=== PATIENT | male | born 1945 | race Caucasian/White ===

== ENCOUNTER 2022-11-10 11:11 | Emergency (ER) | payer MEDICARE, OTHER ==
[~2022-11-10] VITALS: Ht 165.1 cm; Wt 59.0 kg
[2022-11-10] MEDS ORDERED: HYDROCODONE/ACETAMINOPHEN 5/325 MG TAB PO ONE (12:30)
[2022-11-10] MEDS ORDERED: CYCLOBENZAPRINE HCL 10 MG TABLET PO ONE (12:30)
[2022-11-10 13:53] LABS: HEMATOCRIT 46.3 % (42-54); MEAN CORPUSCULAR HEMOGLOBIN 33.3 pg (27.0-33.0); MEAN CORPUSCULAR VOLUME 100.9 fL (79-99); RED BLOOD CELL COUNT(AUTO) 4.59 MIL/uL (4.50-6.20); RED CELL DISTRIBUTION WIDTH 12.8 % (11.0-15.5); WHITE BLOOD COUNT (AUTO) 16.5 K/uL (4.8-10.8)
[2022-11-10 13:54] LABS: APPEARANCE,URINE CLEAR (CLEAR); BILIRUBIN,URINE NEGATIVE (NEGATIVE); COLOR,URINE YELLOW (YELLOW); GLUCOSE, URINE (UA) NEGATIVE (NEGATIVE); KETONES,URINE NEGATIVE (NEGATIVE); LEUKOCYTE ESTERASE ,URINE NEGATIVE Leu/uL (NEGATIVE); NITRATE,URINE NEGATIVE (NEGATIVE); OCCULT BLOOD,URINE NEGATIVE (NEGATIVE); PROTEIN,URINE NEGATIVE (NEGATIVE); UROBILINOGEN,URINE 0.2 mg/dL (0.2-1.0)
[2022-11-10 13:56] LABS: ADD UA MICROSCOPIC NO
[2022-11-10 14:03] LABS: CREATININE 1.2 mg/dL (0.5-1.5); POTASSIUM 4.6 mmol/L (3.5-5.1)
[2022-11-10 14:08] LABS: ALBUMIN 3.8 g/dL (3.5-5.0); BILIRUBIN,TOTAL 0.6 mg/dL (0.2-1.0); TOTAL PROTEIN, SERUM 7.5 g/dL (6.0-8.3)
[2022-11-10 14:25] VITALS: BP 138/75; PULSE 71; RESP 18; O2SAT 94
[2022-11-10] MEDS ORDERED: ACET-2079 PO (14:50)
[2022-11-10] MEDS ORDERED: CYCL10TA16 PO (14:50)
== END 2022-11-10 15:51 | disposition home or self-care (01) ==
LOC: EDH 11:11
DX: M48.54XA Collapsed vertebra, not elsewhere classified, thoracic region, initial encounter for fracture (principal); M54.50 Low back pain, unspecified; J45.909 Unspecified asthma, uncomplicated; J44.9 Chronic obstructive pulmonary disease, unspecified; I10 Essential (primary) hypertension; E78.00 Pure hypercholesterolemia, unspecified; Z87.891 Personal history of nicotine dependence; Z79.899 Other long term (current) drug therapy
CPT/HCPCS: 36415; 71045; 72128; 72131; 80053; 81003; 85027

== ENCOUNTER 2023-02-14 12:20 | Emergency (ER) | payer MEDICARE, OTHER ==
[~2023-02-14] VITALS: Ht 162.6 cm; Wt 61.2 kg
[~2023-02-14 12:20] MED LIST: ACET-2079 PO; CYCL10TA16 PO
[2023-02-14] MEDS ORDERED: MORPHINE 4 MG SYG IM ONE (13:00)
[2023-02-14 13:14] LABS: BASOPHILS # (AUTO) 0.04 K/uL (0.00-0.20); BASOPHILS % (AUTO) 0.4 % (0.0-5.0); EOSINOPHILS # (AUTO) 0.23 K/uL (0.00-0.70); EOSINOPHILS % (AUTO) 2.5 % (0.0-8.0); HEMATOCRIT 41.2 % (42-54); IMMATURE GRANULOCYTE ABSOLUTE 0.05 K/uL (0-1); LYMPHOCYTES % (AUTO) 10.8 % (21.0-51.0); MEAN CORPUSCULAR HEMOGLOBIN 32.2 pg (27.0-33.0); MEAN CORPUSCULAR HGB CONC 33.3 g/dL (32.0-36.0); MEAN CORPUSCULAR VOLUME 96.7 fL (79-99); MONOCYTES % (AUTO) 10.6 % (3.0-13.0); NEUTROPHILS % (AUTO) 75.2 % (40.0-77.0); PLATELET COUNT (AUTO) 320 K/uL (130-400); RED BLOOD CELL COUNT(AUTO) 4.26 MIL/uL (4.50-6.20); WHITE BLOOD COUNT (AUTO) 9.3 K/uL (4.8-10.8)
[2023-02-14 13:26] LABS: CREATININE 1.6 mg/dL (0.5-1.5); POTASSIUM 4.1 mmol/L (3.5-5.1)
[2023-02-14 13:31] LABS: ALBUMIN 3.1 g/dL (3.5-5.0); BILIRUBIN,TOTAL 0.6 mg/dL (0.2-1.0); TOTAL PROTEIN, SERUM 7.4 g/dL (6.0-8.3)
[2023-02-14] MEDS ORDERED: TRAM50TA4 PO (15:18)
[2023-02-14 15:49] VITALS: BP 115/58; PULSE 75; RESP 16; O2SAT 95
== END 2023-02-14 15:55 | disposition home or self-care (01) ==
LOC: EDH 12:20
DX: S42.002A Fracture of unspecified part of left clavicle, initial encounter for closed fracture (principal); M54.50 Low back pain, unspecified; I10 Essential (primary) hypertension; E78.00 Pure hypercholesterolemia, unspecified; J44.9 Chronic obstructive pulmonary disease, unspecified; Z79.899 Other long term (current) drug therapy; Z98.890 Other specified postprocedural states; W10.8XXA Fall (on) (from) other stairs and steps, initial encounter; Y93.89 Activity, other specified; Y92.89 Other specified places as the place of occurrence of the external cause; Y99.8 Other external cause status
CPT/HCPCS: 99285; 72131; 80053; 85025; 36415; 73030; 96372; J2270

== ENCOUNTER 2023-12-07 11:19 | Emergency (ER) | payer OTHER ==
[~2023-12-07] VITALS: Ht 165.1 cm; Wt 53.1 kg
[~2023-12-07 11:19] MED LIST changes: +TRAM50TA4 PO
[2023-12-07 12:06] LABS: BASOPHILS # (AUTO) 0.03 K/uL (0.00-0.20); BASOPHILS % (AUTO) 0.3 % (0.0-5.0); EOSINOPHILS # (AUTO) 0.07 K/uL (0.00-0.70); EOSINOPHILS % (AUTO) 0.7 % (0.0-8.0); HEMATOCRIT 42.6 % (42-54); IMMATURE GRANULOCYTE ABSOLUTE 0.04 K/uL (0-1); LYMPHOCYTES # (AUTO) 0.7 K/uL (1.0-4.8); LYMPHOCYTES % (AUTO) 7.1 % (21.0-51.0); MEAN CORPUSCULAR HEMOGLOBIN 31.1 pg (27.0-33.0); MEAN CORPUSCULAR HGB CONC 33.1 g/dL (32.0-36.0); MEAN CORPUSCULAR VOLUME 93.8 fL (79-99); MONOCYTES # (AUTO) 1.2 K/uL (0.1-1.0); MONOCYTES % (AUTO) 12.2 % (3.0-13.0); NEUTROPHILS # (AUTO) 7.5 K/uL (1.8-7.7); NEUTROPHILS % (AUTO) 79.3 % (40.0-77.0); PLATELET COUNT (AUTO) 377 K/uL (130-400); RED BLOOD CELL COUNT(AUTO) 4.54 MIL/uL (4.50-6.20); RED CELL DISTRIBUTION WIDTH 13.7 % (11.0-15.5); WHITE BLOOD COUNT (AUTO) 9.5 K/uL (4.8-10.8)
[2023-12-07] MEDS ORDERED: DOXY100T21 PO (13:08)
[2023-12-07] MEDS ORDERED: TRAM50TA4 PO (13:08)
[2023-12-07] MEDS ORDERED: ACET-66 PO (13:08)
[2023-12-07] MEDS: acetaMINOPHEN WITH coDEINE 1 TAB TAB PO ONE (13:49)
[2023-12-07] MEDS: ASPIRIN 325MG EC TAB PO ONE (13:49)
[2023-12-07] MEDS: DOXYCYCLINE HYCLATE 100 MG TABLET PO SCH (14:20)
[2023-12-07 15:06] VITALS: BP 144/81; PULSE 68; RESP 20; O2SAT 96
== END 2023-12-07 15:29 | disposition home or self-care (01) ==
LOC: EDH 11:19
DX: S90.822A Blister (nonthermal), left foot, initial encounter (principal); S90.821A Blister (nonthermal), right foot, initial encounter; L03.116 Cellulitis of left lower limb; L03.115 Cellulitis of right lower limb; J44.9 Chronic obstructive pulmonary disease, unspecified; E78.00 Pure hypercholesterolemia, unspecified; I10 Essential (primary) hypertension; Z98.890 Other specified postprocedural states; Z79.899 Other long term (current) drug therapy; X58.XXXA Exposure to other specified factors, initial encounter; Y93.89 Activity, other specified; Y92.89 Other specified places as the place of occurrence of the external cause; Y99.8 Other external cause status
CPT/HCPCS: 36415; 73630; 85025

== ENCOUNTER 2023-12-17 09:24 | Inpatient (IN) | payer OTHER, MEDICARE ==
[~2023-12-17] VITALS: Ht 165.1 cm; Wt 52.0 kg
[2023-12-17] VITALS (11 sets, daily range): BP systolic 83–144; BP diastolic 46–109; PULSE 99–118; RESP 18–20; TEMP 98–98.5; O2SAT 91–100
[~2023-12-17 09:24] MED LIST changes: +ACET-66 PO; +DOXY100T21 PO
[2023-12-17 10:05] LABS: INR 1.14 (0.85-1.15); PROTHROMBIN TIME 12.2 SEC (9.6-11.6)
[2023-12-17 10:07] LABS: PARTIAL THROMBOPLASTIN TIME 26.3 SEC (26.3-35.5)
[2023-12-17 10:10] LABS: CREATININE 1.4 mg/dL (0.5-1.3); POTASSIUM 3.9 mmol/L (3.5-5.1)
[2023-12-17 10:15] LABS: ALBUMIN 3.1 g/dL (3.5-5.0); BILIRUBIN,TOTAL 1.3 mg/dL (0.2-1.0)
[2023-12-17 10:36] LABS: BASOPHILS # (AUTO) 0.05 K/uL (0.00-0.20); BASOPHILS % (AUTO) 0.5 % (0.0-5.0); EOSINOPHILS # (AUTO) 0.05 K/uL (0.00-0.70); EOSINOPHILS % (AUTO) 0.5 % (0.0-8.0); HEMATOCRIT 39.2 % (42-54); IMMATURE GRANULOCYTE ABSOLUTE 0.15 K/uL (0-1); MEAN CORPUSCULAR HEMOGLOBIN 29.8 pg (27.0-33.0); MEAN CORPUSCULAR HGB CONC 33.2 g/dL (32.0-36.0); MEAN CORPUSCULAR VOLUME 89.9 fL (79-99); MONOCYTES # (AUTO) 1.9 K/uL (0.1-1.0); MONOCYTES % (AUTO) 19.1 % (3.0-13.0); NEUTROPHILS # (AUTO) 6.8 K/uL (1.8-7.7); NEUTROPHILS % (AUTO) 68.4 % (40.0-77.0); PLATELET COUNT (AUTO) 93 K/uL (130-400); RED BLOOD CELL COUNT(AUTO) 4.36 MIL/uL (4.50-6.20); RED CELL DISTRIBUTION WIDTH 14.7 % (11.0-15.5)
[2023-12-17] MEDS: CEFTRIAXONE 2GM VIAL IVPB ONE (11:09)
[2023-12-17] MEDS: morPHINE 2 MG SYG IVP ONE (11:46)
[2023-12-17 11:58] LABS: BAND NEUTROPHILS % (MANUAL) 3 % (0-2); BLASTS, MANUAL % 3 (0-0); LYMPHOCYTES % (MANUAL) 3 % (22-44); MAN.DIFF COMMENT-IMPRESSION MANUAL DIFFERENTIAL; MONOCYTES % (MANUAL) 11 % (2-9); REACTIVE LYMPHOCYTES 2 % (0-0); SEGMENTED NEUTROPHILS % 78 % (40-70); TOTAL CELLS COUNTED 100; WBC MORPHOLOGY IMMATURE LYMPHS 1+
[2023-12-17 11:59] LABS: PLATELET MORPHOLOGY COMMENT DECREASED
[2023-12-17] MEDS ORDERED: VANCOMYCIN PROTOCOL PER PHARMACY IV SCH (12:00)
[2023-12-17] MEDS ORDERED: ALBUTEROL 0.083% 2.5 MG/3 ML INH IH PRN (12:00)
[2023-12-17] MEDS: 0.9%NACL 1000ML 1,000 ML IV SCH ×2 (12:17→16:30)
[2023-12-17] MEDS ORDERED: PoTASSium chl 10% ELIXIR 20MEQ 20 MEQ/15 ML UDCUP PO PRN (12:30)
[2023-12-17] MEDS ORDERED: acetaMINOPHEN 500 MG TABLET PO PRN (12:30)
[2023-12-17] MEDS: VANCOMYCIN 1.25 GM/250 ML BAG 250 ML IV ONE (12:40)
[2023-12-17] MEDS: cloPIDOgrel 75MG TAB PO ONE (13:17)
[2023-12-17] MEDS: ASPIRIN 81MG CHEW TAB PO ONE (13:17)
[2023-12-17 13:20] LABS: CREATINE KINASE, TOTAL < 7 U/L (21-232)
[2023-12-17] MEDS ORDERED: LIDOCAINE HCL 400MG/20ML VIAL ONE (13:31)
[2023-12-17] MEDS ORDERED: IODIXANOL 320 MG/ML 100 ML VIAL ONE (13:31)
[2023-12-17] MEDS ORDERED: HEParin-NS 1,000 UNIT/500 ML 1,000 ML IV ONE (13:31)
[2023-12-17] MEDS ORDERED: NITROGLYCERIN 50MG VIAL ONE (13:32)
[2023-12-17] MEDS ORDERED: HEParin 10,000 UNIT/10ML (1,000 UNIT/ML) VIAL ONE (13:36)
[2023-12-17] MEDS ORDERED: FENTanyl CITRate PF 50 MCG/1 ML 2ML VIAL ONE (14:01)
[2023-12-17] MEDS ORDERED: MIDAZOLAM HCL 1 MG/ML 2ML VIAL ONE (14:01)
[2023-12-17] MEDS ORDERED: DiphenhydrAMINE HCL 50 MG/ML VIAL ONE (15:16)
[2023-12-17] MEDS ORDERED: VERAPAMIL HCL 2.5 MG/ML VIAL ONE (15:32)
[2023-12-17] MEDS ORDERED: HEParin 5,000 UNIT VIAL IV PRN (18:00)
[2023-12-17] MEDS ORDERED: ALBU0.63 IH (19:23)
[2023-12-17] MEDS ORDERED: CLOP75TA32 PO (19:34)
[2023-12-17] MEDS ORDERED: SODI15DR8 OP (19:34)
[2023-12-17] MEDS ORDERED: ATOR40TA69 PO (19:34)
[2023-12-17] MEDS ORDERED: CALC200V3 IJ (19:34)
[2023-12-17] MEDS ORDERED: ASPI-1197 PO (19:34)
[2023-12-17] MEDS ORDERED: TRIA1TAB3 PO (19:34)
[2023-12-17] MEDS ORDERED: AMLO-257 PO (19:34)
[2023-12-17] MEDS ORDERED: TIOT4MIS3 IH (19:34)
[2023-12-17] MEDS ORDERED: METO25TA6 PO (19:34)
[2023-12-17] MEDS: metoPROLOL tartRATE 25 MG TAB PO SCH (21:03)
[2023-12-17] MEDS: atorVAStatin 40 MG TABLET PO SCH (21:03)
[2023-12-17] MEDS: HEParin 25,000 UNITS/250ML D5W 250 ML IV SCH (21:10)
[2023-12-17 22:51] LABS: BASOPHILS # (AUTO) 0.04 K/uL (0.00-0.20); BASOPHILS % (AUTO) 0.4 % (0.0-5.0); HEMATOCRIT 32.1 % (42-54); IMMATURE GRANULOCYTE ABSOLUTE 0.15 K/uL (0-1); LYMPHOCYTES # (AUTO) 0.9 K/uL (1.0-4.8); LYMPHOCYTES % (AUTO) 9.1 % (21.0-51.0); MEAN CORPUSCULAR HEMOGLOBIN 30.3 pg (27.0-33.0); MEAN CORPUSCULAR HGB CONC 33.3 g/dL (32.0-36.0); MEAN CORPUSCULAR VOLUME 90.9 fL (79-99); MONOCYTES # (AUTO) 1.8 K/uL (0.1-1.0); MONOCYTES % (AUTO) 18.4 % (3.0-13.0); NEUTROPHILS # (AUTO) 6.8 K/uL (1.8-7.7); NEUTROPHILS % (AUTO) 70.5 % (40.0-77.0); PLATELET COUNT (AUTO) 77 K/uL (130-400); RED BLOOD CELL COUNT(AUTO) 3.53 MIL/uL (4.50-6.20); WHITE BLOOD COUNT (AUTO) 9.6 K/uL (4.8-10.8)
[2023-12-17 23:01] LABS: APPEARANCE,URINE CLEAR (CLEAR); BILIRUBIN,URINE NEGATIVE (NEGATIVE); COLOR,URINE LIGHT-YELLOW (YELLOW); CREATININE,URINE RANDOM 64.31 mg/dL (30-135); GLUCOSE, URINE (UA) NEGATIVE (NEGATIVE); KETONES,URINE 10 mg/dL (NEGATIVE); LEUKOCYTE ESTERASE ,URINE NEGATIVE Leu/uL (NEGATIVE); NITRATE,URINE NEGATIVE (NEGATIVE); OCCULT BLOOD,URINE NEGATIVE (NEGATIVE); PH,URINE 5.5 (5.0-8.0); PROTEIN,URINE 20 mg/dL (NEGATIVE); SODIUM,URINE RANDOM 69 mmol/l (40-220); UROBILINOGEN,URINE 0.2 mg/dL (0.2-1.0)
[2023-12-17 23:05] LABS: ADD UA MICROSCOPIC YES
[2023-12-17 23:23] LABS: WBC,URINE 0-1 /HPF (0-1)
[2023-12-17 23:25] LABS: BACTERIA,URINE None Seen /HPF (None Seen); SQUAMOUS EPITHELIAL CELL,UR Rare /HPF (0-2)
[2023-12-17 23:26] LABS: RBC,URINE None Seen /HPF (0-1)
[2023-12-18] VITALS (14 sets, daily range): BP systolic 85–129; BP diastolic 56–73; PULSE 76–116; RESP 13–32; TEMP 97.8–98.8; O2SAT 87–95
[2023-12-18 03:49] LABS: BASOPHILS # (AUTO) 0.04 K/uL (0.00-0.20); BASOPHILS % (AUTO) 0.4 % (0.0-5.0); EOSINOPHILS # (AUTO) 0.21 K/uL (0.00-0.70); HEMATOCRIT 32.2 % (42-54); IMMATURE GRANULOCYTE ABSOLUTE 0.22 K/uL (0-1); LYMPHOCYTES # (AUTO) 1.1 K/uL (1.0-4.8); LYMPHOCYTES % (AUTO) 9.9 % (21.0-51.0); MEAN CORPUSCULAR HEMOGLOBIN 29.7 pg (27.0-33.0); MEAN CORPUSCULAR HGB CONC 32.3 g/dL (32.0-36.0); MONOCYTES # (AUTO) 1.9 K/uL (0.1-1.0); MONOCYTES % (AUTO) 17.7 % (3.0-13.0); NEUTROPHILS # (AUTO) 7.2 K/uL (1.8-7.7); NEUTROPHILS % (AUTO) 67.9 % (40.0-77.0); PLATELET COUNT (AUTO) 84 K/uL (130-400); RED CELL DISTRIBUTION WIDTH 15.3 % (11.0-15.5); WHITE BLOOD COUNT (AUTO) 10.6 K/uL (4.8-10.8)
[2023-12-18 03:59] LABS: CREATININE 0.9 mg/dL (0.5-1.3); POTASSIUM 3.7 mmol/L (3.5-5.1)
[2023-12-18 08:03] LABS: SARS-CoV-2, RNA, NAAT NEGATIVE SARS CoV-2 (NEGATIVE)
[2023-12-18] MEDS ORDERED: cloPIDOgrel 75MG TAB PO SCH (09:00)
[2023-12-18] MEDS: CEFTRIAXONE 2GM VIAL IVPB SCH (09:14)
[2023-12-18] MEDS: ASPIRIN 81MG CHEW TAB PO SCH (09:14)
[2023-12-18] MEDS: IpraTROPium/alBUTERol SULFATE 3 ML SOLUTION IH SCH (11:00)
[2023-12-18] MEDS ORDERED: ALBUTEROL SULFATE IH PRN (11:00)
[2023-12-18] MEDS ORDERED: IpraTROPium/alBUTERol SULFATE 3 ML SOLUTION IH SCH (12:00)
[2023-12-18] MEDS: VANCOMYCIN 750MG VIAL IVPB SCH (14:15)
[2023-12-18] MEDS: Solu-medROL 125MG VIAL IVP ONE (14:24)
[2023-12-18] MEDS: SODIUM CHLORIDE 5% 15 ML OPHTH SOLN OP SCH (20:41)
[2023-12-19] VITALS (12 sets, daily range): BP systolic 102–119; BP diastolic 50–60; PULSE 64–98; RESP 16–20; TEMP 97.6–99.3; O2SAT 92–100
[2023-12-19] MEDS: metoPROLOL tartRATE 25 MG TAB PO SCH (00:28)
[2023-12-19 04:10] LABS: HEMATOCRIT 29.8 % (42-54); MEAN CORPUSCULAR HEMOGLOBIN 30.1 pg (27.0-33.0); MEAN CORPUSCULAR HGB CONC 33.2 g/dL (32.0-36.0); MEAN CORPUSCULAR VOLUME 90.6 fL (79-99); RED BLOOD CELL COUNT(AUTO) 3.29 MIL/uL (4.50-6.20); RED CELL DISTRIBUTION WIDTH 15.4 % (11.0-15.5); WHITE BLOOD COUNT (AUTO) 9.3 K/uL (4.8-10.8)
[2023-12-19 04:38] LABS: ALBUMIN 2.1 g/dL (3.5-5.0); BILIRUBIN,TOTAL 1.1 mg/dL (0.2-1.0); CREATININE 0.7 mg/dL (0.5-1.3); MAGNESIUM 1.3 mg/dL (1.80-2.40); POTASSIUM 3.4 mmol/L (3.5-5.1); TOTAL PROTEIN, SERUM 5.2 g/dL (6.0-8.3)
[2023-12-19] MEDS: PoTASSium chloRIDE 20MEQ ER 20 MEQ ERTAB PO PRN (05:49)
[2023-12-19] MEDS: MAGNESIUM 2GM PREMIX 50ML 50 ML IV PRN (05:49)
[2023-12-19] MEDS ORDERED: VANCOMYCIN 750MG VIAL IVPB SCH (07:00)
[2023-12-19] MEDS ORDERED: cloPIDOgrel 75MG TAB PO SCH (09:00)
[2023-12-19] MEDS: amLODIPine 5 MG TAB PO SCH (09:05)
[2023-12-19] MEDS: ASPIRIN 81 MG EC TAB PO SCH (09:05)
[2023-12-19] MEDS: TIOTROPIUM BR IH SCH (09:42)
[2023-12-19] MEDS: OLODATEROL HCL IH SCH (09:42)
[2023-12-19] MEDS: PoTASSium chloRIDE 20MEQ ER 20 MEQ ERTAB PO ONE (09:42)
[2023-12-19 16:40] LABS: MAGNESIUM 1.9 mg/dL (1.80-2.40); POTASSIUM 3.9 mmol/L (3.5-5.1)
[2023-12-19] MEDS: MAGNESIUM 2GM PREMIX 50ML 50 ML IV SCH (16:43)
[2023-12-20] VITALS (16 sets, daily range): BP systolic 108–132; BP diastolic 39–72; PULSE 65–114; RESP 18–32; TEMP 97.5–98.3; O2SAT 80–99
[2023-12-20 03:55] LABS: HEMATOCRIT 28.7 % (42-54); MEAN CORPUSCULAR HEMOGLOBIN 29.8 pg (27.0-33.0); MEAN CORPUSCULAR HGB CONC 33.4 g/dL (32.0-36.0); MEAN CORPUSCULAR VOLUME 89.1 fL (79-99); RED BLOOD CELL COUNT(AUTO) 3.22 MIL/uL (4.50-6.20); RED CELL DISTRIBUTION WIDTH 15.3 % (11.0-15.5); WHITE BLOOD COUNT (AUTO) 10.7 K/uL (4.8-10.8)
[2023-12-20 04:15] LABS: ALBUMIN 2.2 g/dL (3.5-5.0); BILIRUBIN,TOTAL 1.1 mg/dL (0.2-1.0); CREATININE 0.7 mg/dL (0.5-1.3); MAGNESIUM 2.2 mg/dL (1.80-2.40); POTASSIUM 3.7 mmol/L (3.5-5.1); TOTAL PROTEIN, SERUM 5.3 g/dL (6.0-8.3)
[2023-12-20] MEDS: VANCOMYCIN 750MG VIAL IVPB SCH (06:12)
[2023-12-20] MEDS ORDERED: IOHEXOL-350 50ML VIAL IV ONE (11:30)
[2023-12-20] MEDS ORDERED: IOHEXOL 350 MG/ML 100ML INFUS..BTL IV ONE (11:30)
[2023-12-20] MEDS: predniSONE 20 MG TABLET PO ONE (12:16)
[2023-12-20 14:09] LABS: ABG HCO3 24.5 mmol/L (21.0-28.0); ABG OXYGEN SATURATION 85.3 % (94.0-98.0); ABG PCO2 33 mmHg (35-48); ABG PH 7.496 (7.350-7.450); DEVICE COMMENT RR,EDDIE; PO2, ARTERIAL BG 45.1 mmHg (83.0-108.0); VENT MODE, BG RA (ROOM AIR)
[2023-12-20 23:27] LABS: ABG BASE EXCESS 0.8 mmol/L (-2.0-3.0); ABG HCO3 24.6 mmol/L (21.0-28.0); ABG PCO2 37 mmHg (35-48); ABG PH 7.441 (7.350-7.450); DEVICE COMMENT RR RN; PO2, ARTERIAL BG 87.1 mmHg (83.0-108.0); VENT MODE, BG 2LNC (ROOM AIR)
[2023-12-20] MEDS: DiphenhydrAMINE HCL 50 MG/ML VIAL IV ONE (23:44)
[2023-12-21] VITALS (17 sets, daily range): BP systolic 52–160; BP diastolic 60–77; PULSE 65–154; RESP 18–32; TEMP 97.8–102.5; O2SAT 92–95
[2023-12-21 07:18] LABS: MEAN CORPUSCULAR HEMOGLOBIN 29.6 pg (27.0-33.0); MEAN CORPUSCULAR HGB CONC 33.1 g/dL (32.0-36.0); MEAN CORPUSCULAR VOLUME 89.5 fL (79-99); NUCLEATED RED BLOOD CELLS 0.2 % (0.0-0.19); PLATELET COUNT (AUTO) 40 K/uL (130-400); RED BLOOD CELL COUNT(AUTO) 3.24 MIL/uL (4.50-6.20); RED CELL DISTRIBUTION WIDTH 15.9 % (11.0-15.5); WHITE BLOOD COUNT (AUTO) 8.3 K/uL (4.8-10.8)
[2023-12-21 08:35] LABS: BAND NEUTROPHILS % (MANUAL) 3 % (0-2); LYMPHOCYTES % (MANUAL) 4 % (22-44); MAN.DIFF COMMENT-IMPRESSION MANUAL DIFFERENTIAL; MONOCYTES % (MANUAL) 10 % (2-9); PLATELET MORPHOLOGY COMMENT MARKED DECREASE; SEGMENTED NEUTROPHILS % 83 % (40-70); TOTAL CELLS COUNTED 100
[2023-12-21] MEDS ORDERED: IOHEXOL 350 MG/ML 100ML INFUS..BTL IV ONE (09:31)
[2023-12-21] MEDS: predniSONE 20 MG TABLET PO ONE (10:37)
[2023-12-21] MEDS: HALOPERIDOL INJ 5 MG/ML VIAL IV ONE (12:22)
[2023-12-21] MEDS: ZOSYN 3.375GM +NS 50ML IV SCH (18:14)
[2023-12-21 18:17] LABS: COVID19 (SARS ANTIGEN RAPID) PRESUMPTIVE NEGATIVE (NEGATIVE); INFLUENZA TYPE A Negative For Type A (NEGATIVE); INFLUENZA TYPE B Negative For Type B (NEGATIVE)
[2023-12-21] MEDS: BUDESONIDE 0.25 MG/2 ML INH IH SCH (19:00)
[2023-12-21] MEDS: acetaMINOPHEN 650 MG SUPPOSITORY RC PRN (21:33)
[2023-12-22] VITALS (111 sets, daily range): BP systolic 117–180; BP diastolic 51–107; PULSE 69–193; RESP 8–54; TEMP 99–100.9; O2SAT 90–100
[2023-12-22 03:52] LABS: BASOPHILS # (AUTO) 0.03 K/uL (0.00-0.20); BASOPHILS % (AUTO) 0.3 % (0.0-5.0); EOSINOPHILS # (AUTO) 0.02 K/uL (0.00-0.70); EOSINOPHILS % (AUTO) 0.2 % (0.0-8.0); HEMATOCRIT 26.4 % (42-54); IMMATURE GRANULOCYTE ABSOLUTE 0.28 K/uL (0-1); LYMPHOCYTES % (AUTO) 10.1 % (21.0-51.0); MEAN CORPUSCULAR HEMOGLOBIN 29.2 pg (27.0-33.0); MEAN CORPUSCULAR HGB CONC 32.6 g/dL (32.0-36.0); MEAN CORPUSCULAR VOLUME 89.5 fL (79-99); MONOCYTES % (AUTO) 11.1 % (3.0-13.0); NEUTROPHILS # (AUTO) 7.1 K/uL (1.8-7.7); NEUTROPHILS % (AUTO) 75.3 % (40.0-77.0); NUCLEATED RED BLOOD CELLS 0.9 % (0.0-0.19); PLATELET COUNT (AUTO) 32 K/uL (130-400); RED BLOOD CELL COUNT(AUTO) 2.95 MIL/uL (4.50-6.20); RED CELL DISTRIBUTION WIDTH 16.6 % (11.0-15.5); WHITE BLOOD COUNT (AUTO) 9.4 K/uL (4.8-10.8)
[2023-12-22 04:02] LABS: PHOSPHORUS 2.9 mg/dL (2.5-4.9); POTASSIUM 3.6 mmol/L (3.5-5.1)
[2023-12-22 04:10] LABS: INR 1.21 (0.85-1.15); PROTHROMBIN TIME 12.9 SEC (9.6-11.6)
[2023-12-22] MEDS ORDERED: DEXTROSE 5 %-0.45 % NACL 500 ML IV SCH (06:00)
[2023-12-22] MEDS: LACTATED RINGERS 1000ML IV SCH (06:02)
[2023-12-22 09:12] LABS: ABG BASE EXCESS -3.1 mmol/L (-2.0-3.0); ABG HCO3 20.5 mmol/L (21.0-28.0); ABG OXYGEN SATURATION 89.8 % (94.0-98.0); ABG PCO2 31 mmHg (35-48); ABG PH 7.435 (7.350-7.450); CARBON MONOXIDE 0.7 % (0.5-1.5); HHb 10.1; PO2, ARTERIAL BG 63.3 mmHg (83.0-108.0); VENT MODE, BG 3 L NC (ROOM AIR)
[2023-12-22] MEDS ORDERED: COMPOUND IV MISC 1 EACH IVSOLN MISC PRN (09:30)
[2023-12-22] MEDS ORDERED: AMIOdarone 900MG VIAL 360 MG in DEXTROSE 5%-WATER 200 ML IV SCH (09:30)
[2023-12-22] MEDS: AMIOdarone 900MG VIAL 540 MG in DEXTROSE 5%-WATER 300 ML IV STA (09:34)
[2023-12-22] MEDS: LACTATED RINGERS 1000ML IV ONE ×2 (09:39→10:16)
[2023-12-22] MEDS: phenylEPHRINE HCL 10 MG in 0.9% NACL 250ML 250 ML IV PRN (09:40)
[2023-12-22] MEDS: AMIOdarone 150MG VIAL ONE (09:44)
[2023-12-22 10:13] LABS: APPEARANCE,URINE CLEAR (CLEAR); BILIRUBIN,URINE NEGATIVE (NEGATIVE); COLOR,URINE YELLOW (YELLOW); GLUCOSE, URINE (UA) NEGATIVE (NEGATIVE); KETONES,URINE 5 mg/dL (NEGATIVE); LEUKOCYTE ESTERASE ,URINE NEGATIVE Leu/uL (NEGATIVE); NITRATE,URINE NEGATIVE (NEGATIVE); OCCULT BLOOD,URINE SMALL (NEGATIVE); PH,URINE 5.5 (5.0-8.0); PROTEIN,URINE 30 mg/dL (NEGATIVE); UROBILINOGEN,URINE 0.2 mg/dL (0.2-1.0)
[2023-12-22] MEDS: AMIOdarone 900MG VIAL 150 MG in DEXTROSE 5%-WATER 100 ML IV SCH (10:15)
[2023-12-22 10:18] LABS: BACTERIA,URINE FEW /HPF (None Seen)
[2023-12-22 10:20] LABS: BILIRUBIN,DIRECT 0.7 mg/dL (0.0-0.3); BILIRUBIN,TOTAL 1.7 mg/dL (0.2-1.0); TOTAL PROTEIN, SERUM 4.9 g/dL (6.0-8.3)
[2023-12-22] MEDS: hydroCORTisone SOD SUCCINATE 100 MG/2 ML VIAL IV SCH (11:24)
[2023-12-22] MEDS: MEROPENEM 1 GM in 0.9%NACL 100ML 100 ML IVPB SCH (11:24)
[2023-12-22] MEDS: FAMOTIDINE 20MG VIAL IV SCH (11:24)
[2023-12-22] MEDS: IpraTROPium 0.5 MG/2.5 ML INH IH SCH (11:42)
[2023-12-22] MEDS: DEXTROSE 5 %-0.45 % NACL 1,000 ML IV SCH (14:45)
[2023-12-22] MEDS: PoTASSium chloRIDE 20MEQ/100ML 100 ML IV PRN (21:01)
[2023-12-22 21:25] LABS: ABG BASE EXCESS 0.7 mmol/L (-2.0-3.0); ABG HCO3 23.9 mmol/L (21.0-28.0); ABG OXYGEN SATURATION 98.5 % (94.0-98.0); ABG PCO2 33 mmHg (35-48); ABG PH 7.483 (7.350-7.450); CARBON MONOXIDE 0.9 % (0.5-1.5); HHb 1.5; PO2, ARTERIAL BG 155.7 mmHg (83.0-108.0)
[2023-12-23] VITALS (57 sets, daily range): BP systolic 107–163; BP diastolic 44–64; PULSE 103–139; RESP 11–60; TEMP 97.7–100.7; O2SAT 95–100
[2023-12-23] MEDS: hydrALAZine 20MG/ML VIAL IV PRN (04:23)
[2023-12-23 07:00] LABS: BASOPHILS # (AUTO) 0.07 K/uL (0.00-0.20); BASOPHILS % (AUTO) 0.6 % (0.0-5.0); HEMATOCRIT 24.9 % (42-54); IMMATURE GRANULOCYTE ABSOLUTE 0.51 K/uL (0-1); LYMPHOCYTES # (AUTO) 1.3 K/uL (1.0-4.8); LYMPHOCYTES % (AUTO) 10.7 % (21.0-51.0); MEAN CORPUSCULAR HEMOGLOBIN 29.1 pg (27.0-33.0); MEAN CORPUSCULAR HGB CONC 32.5 g/dL (32.0-36.0); MEAN CORPUSCULAR VOLUME 89.6 fL (79-99); MONOCYTES # (AUTO) 1.2 K/uL (0.1-1.0); MONOCYTES % (AUTO) 9.9 % (3.0-13.0); NEUTROPHILS # (AUTO) 9.2 K/uL (1.8-7.7); NEUTROPHILS % (AUTO) 74.6 % (40.0-77.0); NUCLEATED RED BLOOD CELLS 1.2 % (0.0-0.19); PLATELET COUNT (AUTO) 27 K/uL (130-400); RED BLOOD CELL COUNT(AUTO) 2.78 MIL/uL (4.50-6.20); RED CELL DISTRIBUTION WIDTH 16.8 % (11.0-15.5); WHITE BLOOD COUNT (AUTO) 12.3 K/uL (4.8-10.8)
[2023-12-23 07:11] LABS: CREATININE 1.3 mg/dL (0.5-1.3); POTASSIUM 4.1 mmol/L (3.5-5.1); VANCOMYCIN TROUGH 18.1 UG/ML (10.0-20.0)
[2023-12-23] MEDS: dexmedeTOMIDine 400MCG/NS100ML IV SCH (07:55)
[2023-12-23 08:11] LABS: BAND NEUTROPHILS % (MANUAL) 3 % (0-2); EOSINOPHILS % (MANUAL) 1 % (1-6); LYMPHOCYTES % (MANUAL) 4 % (22-44); MAN.DIFF COMMENT-IMPRESSION MANUAL DIFFERENTIAL; MONOCYTES % (MANUAL) 1 % (2-9); SEGMENTED NEUTROPHILS % 91 % (40-70); TOTAL CELLS COUNTED 100
[2023-12-23 08:13] LABS: ABG HCO3 22.9 mmol/L (21.0-28.0); ABG OXYGEN SATURATION 97.1 % (94.0-98.0); ABG PCO2 30 mmHg (35-48); ABG PH 7.497 (7.350-7.450); CARBON MONOXIDE 1.3 % (0.5-1.5); HHb 2.9; PO2, ARTERIAL BG 98.6 mmHg (83.0-108.0); VENT MODE, BG BIPAP 18 6 (ROOM AIR)
[2023-12-23] MEDS: LACTATED RINGERS 1000ML IV ONE (09:24)
[2023-12-23] MEDS: LORazepam 2 MG/ML 1 ML VIAL IVP PRN (10:56)
[2023-12-23] MEDS: morPHINE 4 MG SYG IVP PRN (10:57)
[2023-12-24] VITALS: BP 118/56; PULSE 125; RESP 30; TEMP 101.1
[2023-12-24 04:00] VITALS: BP 93/35; PULSE 127; RESP 34; TEMP 100.6
== END 2023-12-24 05:42 | DRG 871 ==
LOC: EDH 09:24 → EDHIP 11:57 → 2DH 16:40 → 2AH 12-21 05:54 → 2BH 12-22 09:00 → 2CH 12-22 18:18 → 3BH 12-23 12:04
PROVIDERS: ADMIT Internal Medicine; ATTEND Internal Medicine
PROC: B4101ZZ Fluoroscopy of Abdominal Aorta using Low Osmolar Contrast (ICD-10-PCS; principal; 2023-12-17)
PROC: B41F1ZZ Fluoroscopy of Right Lower Extremity Arteries using Low Osmolar Contrast (ICD-10-PCS; 2023-12-17)
PROC: B41G1ZZ Fluoroscopy of Left Lower Extremity Arteries using Low Osmolar Contrast (ICD-10-PCS; 2023-12-17)
PROC: 02HV33Z Insertion of Infusion Device into Superior Vena Cava, Percutaneous Approach (ICD-10-PCS; 2023-12-22)
PROC: B548ZZA Ultrasonography of Superior Vena Cava, Guidance (ICD-10-PCS; 2023-12-22)
PROC: 03HY32Z Insertion of Monitoring Device into Upper Artery, Percutaneous Approach (ICD-10-PCS; 2023-12-22)
PROC: B34HZZZ Ultrasonography of Right Upper Extremity Arteries (ICD-10-PCS; 2023-12-22)
PROC: 5A09357 Assistance with Respiratory Ventilation, Less than 24 Consecutive Hours, Continuous Positive Airway Pressure (ICD-10-PCS; 2023-12-22)
PROC: 5A09357 Assistance with Respiratory Ventilation, Less than 24 Consecutive Hours, Continuous Positive Airway Pressure (ICD-10-PCS; 2023-12-23)
DX: A41.1 Sepsis due to other specified staphylococcus (principal); G92.8 Other toxic encephalopathy; J96.21 Acute and chronic respiratory failure with hypoxia; J96.22 Acute and chronic respiratory failure with hypercapnia; R65.21 Severe sepsis with septic shock; L97.419 Non-pressure chronic ulcer of right heel and midfoot with unspecified severity; E11.52 Type 2 diabetes mellitus with diabetic peripheral angiopathy with gangrene; N17.9 Acute kidney failure, unspecified; L03.115 Cellulitis of right lower limb; I70.261 Atherosclerosis of native arteries of extremities with gangrene, right leg; E87.20 Acidosis, unspecified; E11.621 Type 2 diabetes mellitus with foot ulcer; J44.9 Chronic obstructive pulmonary disease, unspecified; E78.00 Pure hypercholesterolemia, unspecified; Z20.822 Contact with and (suspected) exposure to COVID-19; I10 Essential (primary) hypertension; D64.9 Anemia, unspecified; E11.65 Type 2 diabetes mellitus with hyperglycemia; E83.52 Hypercalcemia; B95.7 Other staphylococcus as the cause of diseases classified elsewhere; Z66 Do not resuscitate; E86.1 Hypovolemia; I48.0 Paroxysmal atrial fibrillation; L97.519 Non-pressure chronic ulcer of other part of right foot with unspecified severity; D69.6 Thrombocytopenia, unspecified; L97.529 Non-pressure chronic ulcer of other part of left foot with unspecified severity; Z51.5 Encounter for palliative care; Z92.21 Personal history of antineoplastic chemotherapy; Z79.02 Long term (current) use of antithrombotics/antiplatelets; Z79.82 Long term (current) use of aspirin; Z85.118 Personal history of other malignant neoplasm of bronchus and lung; Z87.891 Personal history of nicotine dependence; Z85.828 Personal history of other malignant neoplasm of skin; Z85.820 Personal history of malignant melanoma of skin; Z91.81 History of falling; Z79.899 Other long term (current) drug therapy; Z92.3 Personal history of irradiation; Z91.199 Patient's noncompliance with other medical treatment and regimen due to unspecified reason
CPT/HCPCS: 36200; 36415; 36600; 71045; 71275; 73620; 75635; 75716; 76770; 80048; 80053; 80076; 80202; 81001; 82140; 82306; 82435; 82550; 82570; 82803; 82947; 82948; 83036; 83605; 83735; 83880; 83970; 84100; 84132; 84145; 84295; 84300; 84443; 84484; 85018; 85025; 85027; 85049; 85384; 85610; 85730; 86140; 87040; 87086; 87186; 87426; 87635; 87804; 93005; 93306; 93925; 93970; 94640; 94660; 94664; 99156; 99157; C1769; C1894; G0378; J0282; J0360; J0696; J1200; J1630; J1644; J1720; J2060; J2185; J2250; J2270; J2371; J2543; J2919; J3010; J3475; J3480; J3490; J7042; J7050; J7060; Q9967; 3370; A4649; C1887; J3370